=== PATIENT | female | born 1960 | race Caucasian/White ===

== ENCOUNTER 2018-01-22 09:45 | Day surgery (SDC) | payer MEDICAID ==
[~2018-01-22] VITALS: Ht 157.5 cm; Wt 73.2 kg
[~2018-01-22 09:45] MED LIST: SODIUM CHLORIDE 0.9% 1,000 ML IV ONE
[2018-01-22] MEDS ORDERED: PROPOFOL 1% 20 ML VIAL IVP ONE (09:46)
[2018-01-22] MEDS ORDERED: LIDOCAINE HCL/PF 2% 5 ML SYRINGE IVP ONE (09:46)
== END 2018-01-22 12:40 | disposition home or self-care (01) ==
LOC: SURGERY 09:45
PROVIDERS: ATTEND Internal Medicine Gastroenterology
DX: K29.50 Unspecified chronic gastritis without bleeding (principal); B96.81 Helicobacter pylori [H. pylori] as the cause of diseases classified elsewhere; K21.9 Gastro-esophageal reflux disease without esophagitis; Z87.891 Personal history of nicotine dependence; Z98.890 Other specified postprocedural states
CPT/HCPCS: 43239; 88305; 88312; C1769; J2704; J3490; J7030

== ENCOUNTER 2018-02-05 09:42 | Day surgery (SDC) | payer MEDICAID ==
[~2018-02-05] VITALS: Ht 154.9 cm; Wt 71.8 kg
[~2018-02-05 09:42] MED LIST changes: +AMOX500T2 PO; +CLAR500T98 PO
[2018-02-05] MEDS ORDERED: MIDAZOLAM HCL 5 MG/ML VIAL ONE (10:11)
[2018-02-05] MEDS ORDERED: FentaNYL CITRATE-PF 100 MCG/2 ML VIAL ONE (10:11)
[2018-02-05] MEDS ORDERED: NALOXONE HCL 1 MG/ML 2 ML SYG IVP PRN (11:15)
== END 2018-02-05 12:35 | disposition home or self-care (01) ==
LOC: SURGERY 09:42 → EDUNIT# 11:30 → SURGERY 12:35
PROVIDERS: ATTEND Internal Medicine Gastroenterology
DX: K57.30 Diverticulosis of large intestine without perforation or abscess without bleeding (principal); G89.29 Other chronic pain; K21.9 Gastro-esophageal reflux disease without esophagitis; Z80.1 Family history of malignant neoplasm of trachea, bronchus and lung; Z79.2 Long term (current) use of antibiotics; Z87.891 Personal history of nicotine dependence; Z98.890 Other specified postprocedural states; Z79.899 Other long term (current) drug therapy
CPT/HCPCS: 45378; J2250; J3010; J7030